=== PATIENT | male | born 1975 | race Two or more races ===

== ENCOUNTER 2023-11-30 16:44 | Emergency (ER) | payer MEDICAID, OTHER ==
[~2023-11-30] VITALS: Ht 180.3 cm; Wt 169.7 kg
[~2023-11-30 16:44] MED LIST: DICL50TA5 PO
[2023-11-30 16:57] VITALS: BP 136/78; PULSE 96; RESP 18; O2SAT 98
== END 2023-11-30 18:25 | disposition left against medical advice (07) ==
LOC: ER 16:44
DX: R05.9 Cough, unspecified (principal); Z53.21 Procedure and treatment not carried out due to patient leaving prior to being seen by health care provider